=== PATIENT | female | born 1955 | race African-American/Black ===

== ENCOUNTER 2019-10-01 05:37 | Inpatient (IN) | payer MEDICARE, MEDICAID ==
[~2019-10-01] VITALS: Ht 152.4 cm; Wt 91.6 kg
[2019-10-01] VITALS (57 sets, daily range): BP systolic 102–202; BP diastolic 50–191
[2019-10-01] MEDS: DEXT 5%/LACTATED RINGERS 1,000 ML IV SCH ×2 (01:35→10:43)
[~2019-10-01 05:37] MED LIST: SODIUM CHLORIDE 0.9% 1,000 ML IV SCH
[2019-10-01] MEDS ORDERED: THROMBIN (BOVINE) 5000 UNITS/VIAL TOP ONE (06:19)
[2019-10-01] MEDS ORDERED: LIDOCAINE HCL/EPINEPHRINE 1%-EPI 1:100,000 20 ML VIAL ONE (06:20)
[2019-10-01] MEDS ORDERED: BACITRACIN 50,000 UNITS/VIAL ONE (06:20)
[2019-10-01] MEDS ORDERED: ASPI-1497 PO (06:48)
[2019-10-01] MEDS ORDERED: METH-612 PO (06:48)
[2019-10-01] MEDS ORDERED: LORA10CA PO (06:48)
[2019-10-01] MEDS ORDERED: METF-414 PO (06:48)
[2019-10-01] MEDS ORDERED: SULI200T4 PO (06:48)
[2019-10-01] MEDS ORDERED: ATEN50TA PO (06:48)
[2019-10-01] MEDS ORDERED: HYDR25TA PO (06:48)
[2019-10-01] MEDS ORDERED: TRAM100C3 PO (06:48)
[2019-10-01] MEDS ORDERED: OMEP40CA12 MT (06:48)
[2019-10-01] MEDS ORDERED: PREG20SO PO (06:48)
[2019-10-01] MEDS ORDERED: LIDO1ADH71 (06:48)
[2019-10-01] MEDS ORDERED: SUCR1TAB PO (06:48)
[2019-10-01] MEDS ORDERED: PRAV40TA58 PO (06:48)
[2019-10-01] MEDS ORDERED: FENTANYL CITRATE/PF 50MCG/ML 2ML VIAL ONE (06:56)
[2019-10-01] MEDS ORDERED: ROCURONIUM BROMIDE 10MG/ML VIAL 5ML IV ONE (06:56)
[2019-10-01] MEDS ORDERED: MIDAZOLAM HCL 2 MG/2 ML VIAL ONE (06:57)
[2019-10-01] MEDS ORDERED: PROPOFOL 200MG/20ML VIAL IV ONE (06:57)
[2019-10-01] MEDS ORDERED: GLYCOPYRROLATE 0.2 MG/ML 2ML VIAL ONE ×2 (06:57→09:13)
[2019-10-01] MEDS ORDERED: NEOSTIGMINE METHYLSULFATE 1MG/ML 10 ML VIAL ONE (06:57)
[2019-10-01 06:58] LABS: CHLORIDE 101 mEq/L (98-107)
[2019-10-01] MEDS ORDERED: ONDANSETRON HCL 4MG/2ML INJ ONE (07:49)
[2019-10-01] MEDS ORDERED: HYDROMORPHONE HCL/PF 2MG/ML (OR) ONE (07:49)
[2019-10-01] MEDS ORDERED: DEXAMETHASONE 4MG/ML 1ML VIAL ONE (07:49)
[2019-10-01] MEDS ORDERED: FEXO-25 PO (08:42)
[2019-10-01] MEDS ORDERED: AMIT75TA2 PO (08:42)
[2019-10-01] MEDS ORDERED: FLUT1AER INH (08:42)
[2019-10-01] MEDS ORDERED: IPRA4AER INH (08:42)
[2019-10-01] MEDS ORDERED: ALBU90AE INH (08:42)
[2019-10-01] MEDS ORDERED: GABA-290 PO (08:42)
[2019-10-01] MEDS ORDERED: FLUT9.9S NS (08:42)
[2019-10-01] MEDS ORDERED: NICARDIPINE 100 MG in SODIUM CHLORIDE 0.9% 60 ML IV PRN (09:00)
[2019-10-01] MEDS ORDERED: LIDOCAINE HCL 1% 20ML VIAL (Pyxis) INJ ONE (09:07)
[2019-10-01] MEDS ORDERED: SODIUM CHLORIDE 0.9% 10ML VIAL ONE (09:07)
[2019-10-01] MEDS ORDERED: LABETALOL HCL 5MG/ML VIAL 20ML IV ONE (09:07)
[2019-10-01] MEDS ORDERED: HYDRALAZINE 20MG/ML VIAL ONE (09:07)
[2019-10-01] MEDS ORDERED: EPHEDRINE SULFATE 50MG/ML VIAL ONE (09:07)
[2019-10-01] MEDS ORDERED: CEFAZOLIN SODIUM 1000MG/VIAL ONE (09:07)
[2019-10-01] MEDS ORDERED: PREG50CA PO (10:22)
[2019-10-01] MEDS ORDERED: OMEP40CA12 PO (10:24)
[2019-10-01] MEDS: MORPHINE SULFATE 4 MG/ML CPJ (NOT FOR IM USE) IV PRN ×2 (10:40→12:58)
[2019-10-01] MEDS ORDERED: MORPHINE SULFATE 2 MG/ML CPJ (NOT FOR IM USE) IV NR (11:30)
[2019-10-01 11:58] LABS: BG BASE EXCESS -0.4 mmol/L (-2.0-2.0); BG CARBOXYHEMOGLOBIN 0.4 % (0.5-1.5); BG DEOXYHEMOGLOBIN 1.3 % (0.0-5.0); BG FRACTION INSPIRED OXYGEN 40; BG HCO3 ACT 23.1 mmol/L (22.0-26.0); BG METHEMOGLOBIN 0.3 % (0.0-1.5); BG OXYGEN SATURATION 98.7 % (92.0-98.5); BG PCO2 34.2 mmHg (35.0-45.0); BG PH 7.447 (7.350-7.450); BG PO2 150.9 mmHg (75.0-100.0); BG PRESSURE SUPPORT 8; BG SAMPLE SITE A-LINE; BG TOTAL HEMOGLOBIN 12.3 g/dL (12.0-18.0); BG VENT MODE VENT - CPAP
[2019-10-01] MEDS ORDERED: NALOXONE INJ IV PRN (13:30)
[2019-10-01] MEDS ORDERED: ONDANSETRON INJ IV PRN (13:30)
[2019-10-01] MEDS ORDERED: HYDROMORPHONE PCA 10MG/50ML IV PRN (13:30)
[2019-10-01] MEDS ORDERED: CEFAZOLIN SODIUM 1000MG/VIAL IV SCH (14:00)
[2019-10-01] MEDS: DEXAMETHASONE 4MG/ML 1ML VIAL IV SCH ×2 (14:25→18:47)
[2019-10-01] MEDS: CEFAZOLIN 1000MG PREMIX 50 ML IV SCH ×2 (14:25→21:11)
[2019-10-01] MEDS ORDERED: IPRATROPIUM/ALBUTEROL 0.5-3(2.5)MG/3ML NEB HHN PRN (14:45)
[2019-10-01 15:06] LABS: HEMATOCRIT. 36.5 % (36.0-48.0); MEAN CORPUSCULAR HEMOGLOBIN 28.2 pg (28.0-32.0); MEAN CORPUSCULAR VOLUME 86.1 fL (81.0-99.0); MEAN PLATELET VOLUME 10.1 fl (7.4-10.4); PLATELET 192 x1000/uL (130-400); RED BLOOD CELL COUNT 4.24 mill/uL (4.2-5.4); RED CELL DISTRIBUTION WIDTH 14.2 % (11.6-14.6)
[2019-10-01 16:01] LABS: PLATELET ESTIMATE NORMAL
[2019-10-01] MEDS ORDERED: DEXTROSE 50% WATER 50ML SYRINGE IV PRN (16:30)
[2019-10-01] MEDS: BLOOD SUGAR DIAGNOSTIC STRIP TEST SCH ×2 (16:30→21:09)
[2019-10-01] MEDS: INSULIN LISPRO 100 UNITS/ML SUBCUT SCH ×2 (17:00→22:09)
[2019-10-01] MEDS ORDERED: OXYCODONE HCL/ACETAMINOPHEN 5/325MG TABLET PO PRN (18:30)
[2019-10-01] MEDS: FLUTICASONE PROPIONATE 50MCG/SPRAY BOTTLE BOTHNSTRLS SCH (20:51)
[2019-10-01] MEDS: AMITRIPTYLINE 25MG TABLET PO SCH (20:57)
[2019-10-01] MEDS: GABAPENTIN 300MG CAPSULE PO SCH (20:57)
[2019-10-01] MEDS: ATORVASTATIN CALCIUM 40MG TABLET PO SCH (20:57)
[2019-10-01] MEDS: ATENOLOL 50 MG TABLET PO SCH (20:58)
[2019-10-01] MEDS: BUDESONIDE 0.5MG/2ML NEB HHN SCH (21:23)
[2019-10-01] MEDS: IPRATROPIUM/ALBUTEROL 0.5-3(2.5)MG/3ML NEB HHN SCH (21:23)
[2019-10-02] VITALS (63 sets, daily range): BP systolic 84–197; BP diastolic 32–121
[2019-10-02] MEDS: DEXAMETHASONE 4MG/ML 1ML VIAL IV SCH ×3 (00:27→11:34)
[2019-10-02] MEDS: HYDROCODONE/ACETAMINOPHEN 5/325MG TABLET PO PRN ×2 (01:02→20:58)
[2019-10-02] MEDS: IPRATROPIUM/ALBUTEROL 0.5-3(2.5)MG/3ML NEB HHN SCH ×3 (02:16→20:15)
[2019-10-02] MEDS: OMEPRAZOLE 20MG CAPSULE EXTENDED RELEASE PO SCH (05:39)
[2019-10-02] MEDS: CEFAZOLIN 1000MG PREMIX 50 ML IV SCH ×3 (05:39→21:04)
[2019-10-02] MEDS: BUDESONIDE 0.5MG/2ML NEB HHN SCH ×2 (06:00→20:15)
[2019-10-02 06:03] LABS: CHLORIDE 101 mEq/L (98-107)
[2019-10-02] MEDS ORDERED: LORATADINE 10MG TABLET PO SCH (09:00)
[2019-10-02] MEDS: HYDROCHLOROTHIAZIDE 25MG TABLET PO SCH (09:36)
[2019-10-02] MEDS: METFORMIN HCL 500MG TABLET PO SCH (09:36)
[2019-10-02] MEDS ORDERED: GUAIFENESIN 600MG ER TABLET PO PRN (10:30)
[2019-10-02] MEDS: DEXT 5%/LACTATED RINGERS 1,000 ML IV SCH ×2 (11:34→16:23)
[2019-10-02] MEDS: FLUTICASONE PROPIONATE 50MCG/SPRAY BOTTLE BOTHNSTRLS SCH ×2 (11:34→20:54)
[2019-10-02] MEDS: BLOOD SUGAR DIAGNOSTIC STRIP TEST SCH ×3 (12:05→20:54)
[2019-10-02] MEDS: INSULIN LISPRO 100 UNITS/ML SUBCUT SCH ×3 (13:41→20:55)
[2019-10-02] MEDS: DIPHENHYDRAMINE 25MG CAPSULE PO PRN ×2 (17:33→21:38)
[2019-10-02] MEDS: AMITRIPTYLINE 25MG TABLET PO SCH (20:55)
[2019-10-02] MEDS: GABAPENTIN 300MG CAPSULE PO SCH (20:55)
[2019-10-02] MEDS: LORATADINE 10MG TABLET PO SCH (20:55)
[2019-10-02] MEDS: ATORVASTATIN CALCIUM 40MG TABLET PO SCH (20:56)
[2019-10-02] MEDS: ATENOLOL 50 MG TABLET PO SCH (20:56)
[2019-10-02] MEDS: MORPHINE SULFATE 4 MG/ML CPJ (NOT FOR IM USE) IV PRN (23:13)
[2019-10-03] VITALS: BP 115/50
[2019-10-03] MEDS: IPRATROPIUM/ALBUTEROL 0.5-3(2.5)MG/3ML NEB HHN SCH ×4 (02:17→21:56)
[2019-10-03 04:00] VITALS: BP 112/54
[2019-10-03] MEDS: DEXT 5%/LACTATED RINGERS 1,000 ML IV SCH ×2 (06:03→12:23)
[2019-10-03] MEDS: CEFAZOLIN 1000MG PREMIX 50 ML IV SCH ×2 (06:03→13:44)
[2019-10-03] MEDS: BLOOD SUGAR DIAGNOSTIC STRIP TEST SCH ×4 (06:04→20:44)
[2019-10-03] MEDS: OMEPRAZOLE 20MG CAPSULE EXTENDED RELEASE PO SCH (06:04)
[2019-10-03] MEDS: MORPHINE SULFATE 4 MG/ML CPJ (NOT FOR IM USE) IV PRN ×7 (06:05→23:35)
[2019-10-03 06:59] LABS: BASOPHILS % 0.2 % (0.0-2.0); HEMATOCRIT. 31.1 % (36.0-48.0); HEMOGLOBIN. 10.3 g/dL (12.0-16.0); LYMPHOCYTES % 13.7 % (20.0-50.0); MEAN CORPUSCULAR HEMOGLOBIN 28.3 pg (28.0-32.0); MEAN CORPUSCULAR VOLUME 85.1 fL (81.0-99.0); MEAN PLATELET VOLUME 10.1 fl (7.4-10.4); MONOCYTES % 6.4 % (2.0-8.0); NEUTROPHILS % 79.7 % (40.0-76.0); PLATELET 179 x1000/uL (130-400); RED BLOOD CELL COUNT 3.65 mill/uL (4.2-5.4); RED CELL DISTRIBUTION WIDTH 14.1 % (11.6-14.6)
[2019-10-03 07:16] LABS: CHLORIDE 102 mEq/L (98-107)
[2019-10-03] MEDS: INSULIN LISPRO 100 UNITS/ML SUBCUT SCH ×4 (07:40→20:44)
[2019-10-03 08:00] VITALS: BP 122/55
[2019-10-03] MEDS: BUDESONIDE 0.5MG/2ML NEB HHN SCH ×2 (08:37→21:57)
[2019-10-03] MEDS: FLUTICASONE PROPIONATE 50MCG/SPRAY BOTTLE BOTHNSTRLS SCH ×3 (09:00→20:37)
[2019-10-03] MEDS: HYDROCHLOROTHIAZIDE 25MG TABLET PO SCH (09:16)
[2019-10-03] MEDS: METFORMIN HCL 500MG TABLET PO SCH (09:17)
[2019-10-03 12:00] VITALS: BP 142/68
[2019-10-03 16:00] VITALS: BP 148/61
[2019-10-03 20:00] VITALS: BP_SYST 110; BP_SYST 99; BP_DIAS 47; BP_DIAS 58
[2019-10-03] MEDS: ATENOLOL 50 MG TABLET PO SCH (20:19)
[2019-10-03] MEDS: GABAPENTIN 300MG CAPSULE PO SCH (20:19)
[2019-10-03] MEDS: ATORVASTATIN CALCIUM 40MG TABLET PO SCH (20:19)
[2019-10-03] MEDS: AMITRIPTYLINE 25MG TABLET PO SCH (20:19)
[2019-10-03] MEDS: LORATADINE 10MG TABLET PO SCH (20:37)
[2019-10-04] VITALS: BP 99/58
[2019-10-04] MEDS: IPRATROPIUM/ALBUTEROL 0.5-3(2.5)MG/3ML NEB HHN SCH (02:16)
[2019-10-04 04:00] VITALS: BP 111/53
[2019-10-04] MEDS: MORPHINE SULFATE 4 MG/ML CPJ (NOT FOR IM USE) IV PRN ×2 (06:21→10:24)
[2019-10-04] MEDS: OMEPRAZOLE 20MG CAPSULE EXTENDED RELEASE PO SCH (06:21)
[2019-10-04] MEDS: DEXT 5%/LACTATED RINGERS 1,000 ML IV SCH ×2 (06:26→09:21)
[2019-10-04] MEDS: BLOOD SUGAR DIAGNOSTIC STRIP TEST SCH ×2 (06:35→12:20)
[2019-10-04] MEDS: INSULIN LISPRO 100 UNITS/ML SUBCUT SCH ×2 (06:35→12:50)
[2019-10-04 07:22] LABS: BASOPHILS % 0.1 % (0.0-2.0); EOSINOPHILS % 0.5 % (0.0-5.0); HEMATOCRIT. 32.7 % (36.0-48.0); HEMOGLOBIN. 10.6 g/dL (12.0-16.0); LYMPHOCYTES % 22.4 % (20.0-50.0); MEAN CORPUSCULAR HEMOGLOBIN 27.7 pg (28.0-32.0); MEAN CORPUSCULAR VOLUME 85.5 fL (81.0-99.0); MEAN PLATELET VOLUME 9.6 fl (7.4-10.4); MONOCYTES % 8.8 % (2.0-8.0); NEUTROPHILS % 68.2 % (40.0-76.0); PLATELET 182 x1000/uL (130-400); RED BLOOD CELL COUNT 3.82 mill/uL (4.2-5.4); RED CELL DISTRIBUTION WIDTH 14.3 % (11.6-14.6)
[2019-10-04 08:00] VITALS: BP 111/60
[2019-10-04 08:34] LABS: CHLORIDE 98 mEq/L (98-107)
[2019-10-04] MEDS: HYDROCHLOROTHIAZIDE 25MG TABLET PO SCH (09:21)
[2019-10-04] MEDS: FLUTICASONE PROPIONATE 50MCG/SPRAY BOTTLE BOTHNSTRLS SCH (09:21)
[2019-10-04] MEDS: METFORMIN HCL 500MG TABLET PO SCH (09:21)
[2019-10-04] MEDS: HYDROCODONE/ACETAMINOPHEN 5/325MG TABLET PO PRN (11:49)
[2019-10-04 12:00] VITALS: BP 138/60
[2019-10-04] MEDS ORDERED: HYDROCODONE/APAP 7.5/325MG 1 TAB TABLET PO PRN (13:00)
[2019-10-04 17:04] VITALS: BP 153/60
== END 2019-10-04 17:42 | DRG 471 ==
LOC: OR 05:37 → MICUSO 05:38 → 6EST 10-02 22:20
PROVIDERS: ADMIT Internal Medicine; ATTEND Neurological Surgery
PROC: 0RG2071 Fusion of 2 or more Cervical Vertebral Joints with Autologous Tissue Substitute, Posterior Approach, Posterior Column, Open Approach (ICD-10-PCS; principal; 2019-10-01)
PROC: 00NW0ZZ Release Cervical Spinal Cord, Open Approach (ICD-10-PCS; 2019-10-01)
PROC: BR101ZZ Fluoroscopy of Cervical Spine using Low Osmolar Contrast (ICD-10-PCS; 2019-10-01)
DX: M48.02 Spinal stenosis, cervical region (principal); G82.50 Quadriplegia, unspecified; M47.12 Other spondylosis with myelopathy, cervical region; M47.22 Other spondylosis with radiculopathy, cervical region; E11.9 Type 2 diabetes mellitus without complications; E66.9 Obesity, unspecified; E78.5 Hyperlipidemia, unspecified; E87.6 Hypokalemia; Z96.653 Presence of artificial knee joint, bilateral; R26.89 Other abnormalities of gait and mobility; F41.9 Anxiety disorder, unspecified; I10 Essential (primary) hypertension; J45.909 Unspecified asthma, uncomplicated; Z87.891 Personal history of nicotine dependence; Z68.39 Body mass index [BMI] 39.0-39.9, adult; Z90.710 Acquired absence of both cervix and uterus
CPT/HCPCS: 36415; 36600; 71045; 72040; 72141; 76000; 80048; 82375; 82805; 82962; 83036; 85025; 86850; 86900; 88304; 88311; 94002; 94640; 97116; 97162; 97166; 97530; 97535; C1713; J0360; J0690; J1100; J1170; J1815; J2250; J2270; J2405; J2704; J2710; J3010; J3490; J7050; J7121; J7626; Q0163

== ENCOUNTER 2019-10-04 18:00 | Inpatient (IN) | payer MEDICARE, MEDICAID ==
[~2019-10-04] VITALS: Ht 152.4 cm; Wt 91.6 kg
[~2019-10-04 18:00] MED LIST changes: +ALBU90AE INH; +AMIT75TA2 PO; +ASPI-1497 PO; +ATEN50TA PO; +FEXO-25 PO; +FLUT1AER INH; +FLUT9.9S NS; +GABA-290 PO; +HYDR25TA PO; +IPRA4AER INH; +LIDO1ADH71; +LORA10CA PO; +METF-414 PO; +METH-612 PO; +OMEP40CA12 PO; +PRAV40TA58 PO; +PREG50CA PO; -SODIUM CHLORIDE 0.9% 1,000 ML IV SCH; +SUCR1TAB PO; +SULI200T4 PO; +TRAM100C3 PO
[2019-10-04] MEDS ORDERED: IPRATROPIUM/ALBUTEROL 0.5-3(2.5)MG/3ML NEB HHN PRN (19:30)
[2019-10-04] MEDS ORDERED: DEXTROSE 50% WATER 50ML SYRINGE IV PRN (19:30)
[2019-10-04] MEDS ORDERED: DIPHENHYDRAMINE 25MG CAPSULE PO PRN (19:30)
[2019-10-04 20:00] VITALS: BP_SYST 151; BP_SYST 175; BP_DIAS 74; BP_DIAS 75
[2019-10-04] MEDS: HYDROCODONE/APAP 7.5/325MG 1 TAB TABLET PO PRN (20:03)
[2019-10-04] MEDS: INSULIN LISPRO 100 UNITS/ML SUBCUT SCH (21:00)
[2019-10-04] MEDS: BLOOD SUGAR DIAGNOSTIC STRIP TEST SCH (21:14)
[2019-10-04] MEDS: AMITRIPTYLINE 25MG TABLET PO SCH (21:15)
[2019-10-04] MEDS: ATORVASTATIN CALCIUM 40MG TABLET PO SCH (21:15)
[2019-10-04] MEDS: ONDANSETRON HCL 4MG TABLET PO PRN (21:15)
[2019-10-04] MEDS: GABAPENTIN 300MG CAPSULE PO SCH (21:15)
[2019-10-04] MEDS: LORATADINE 10MG TABLET PO SCH (21:16)
[2019-10-04] MEDS: ATENOLOL 50 MG TABLET PO SCH (21:16)
[2019-10-04] MEDS: GUAIFENESIN 600MG ER TABLET PO SCH (21:16)
[2019-10-05] MEDS: OMEPRAZOLE 20MG CAPSULE EXTENDED RELEASE PO SCH (06:03)
[2019-10-05] MEDS: ONDANSETRON HCL 4MG TABLET PO PRN ×2 (06:03→15:21)
[2019-10-05] MEDS: BLOOD SUGAR DIAGNOSTIC STRIP TEST SCH ×4 (06:41→21:31)
[2019-10-05 08:00] VITALS: BP 147/69
[2019-10-05] MEDS: INSULIN LISPRO 100 UNITS/ML SUBCUT SCH ×4 (09:00→21:00)
[2019-10-05] MEDS: FLUTICASONE PROPIONATE 50MCG/SPRAY BOTTLE BOTHNSTRLS SCH ×2 (09:00→21:23)
[2019-10-05] MEDS: HYDROCODONE/APAP 7.5/325MG 1 TAB TABLET PO PRN ×2 (09:48→16:54)
[2019-10-05] MEDS: ONDANSETRON 4MG ODT PO PRN (11:05)
[2019-10-05] MEDS: GUAIFENESIN 600MG ER TABLET PO SCH ×2 (11:54→21:23)
[2019-10-05] MEDS: BISACODYL 5MG TABLET PO PRN (11:54)
[2019-10-05] MEDS: HYDROCHLOROTHIAZIDE 25MG TABLET PO SCH (11:54)
[2019-10-05] MEDS: METFORMIN HCL 500MG TABLET PO SCH (11:54)
[2019-10-05] MEDS: LACTULOSE 20G/30ML UDC PO SCH ×2 (11:54→18:00)
[2019-10-05] MEDS ORDERED: NA PHOS,M-B/NA PHOS,DI-BA ENEMA 118ML PR PRN (15:45)
[2019-10-05] MEDS ORDERED: ONDANSETRON HCL 4MG/2ML INJ IV PRN (16:30)
[2019-10-05 20:00] VITALS: BP 130/62
[2019-10-05] MEDS: ATORVASTATIN CALCIUM 40MG TABLET PO SCH (21:23)
[2019-10-05] MEDS: LORATADINE 10MG TABLET PO SCH (21:23)
[2019-10-05] MEDS: AMITRIPTYLINE 25MG TABLET PO SCH (21:23)
[2019-10-05] MEDS: GABAPENTIN 300MG CAPSULE PO SCH (21:23)
[2019-10-05] MEDS: ATENOLOL 50 MG TABLET PO SCH (21:24)
[2019-10-06] MEDS: LACTULOSE 20G/30ML UDC PO SCH
[2019-10-06] MEDS: INSULIN LISPRO 100 UNITS/ML SUBCUT SCH ×4 (06:32→21:00)
[2019-10-06] MEDS: BLOOD SUGAR DIAGNOSTIC STRIP TEST SCH ×4 (06:32→21:26)
[2019-10-06] MEDS: OMEPRAZOLE 20MG CAPSULE EXTENDED RELEASE PO SCH (06:33)
[2019-10-06 08:21] VITALS: BP 130/61
[2019-10-06] MEDS: FLUTICASONE PROPIONATE 50MCG/SPRAY BOTTLE BOTHNSTRLS SCH ×2 (09:00→21:00)
[2019-10-06] MEDS: GUAIFENESIN 600MG ER TABLET PO SCH ×2 (09:15→21:24)
[2019-10-06] MEDS: METFORMIN HCL 500MG TABLET PO SCH (09:15)
[2019-10-06] MEDS: HYDROCHLOROTHIAZIDE 25MG TABLET PO SCH (09:16)
[2019-10-06] MEDS: HYDROCODONE/APAP 7.5/325MG 1 TAB TABLET PO PRN ×3 (09:16→23:19)
[2019-10-06 17:10] VITALS: BP 125/59
[2019-10-06] MEDS: ONDANSETRON 4MG ODT PO PRN (17:11)
[2019-10-06 20:00] VITALS: BP 113/51
[2019-10-06] MEDS: AMITRIPTYLINE 25MG TABLET PO SCH (21:24)
[2019-10-06] MEDS: ATORVASTATIN CALCIUM 40MG TABLET PO SCH (21:24)
[2019-10-06] MEDS: ATENOLOL 50 MG TABLET PO SCH (21:25)
[2019-10-06] MEDS: LORATADINE 10MG TABLET PO SCH (21:25)
[2019-10-06] MEDS: GABAPENTIN 300MG CAPSULE PO SCH (21:25)
[2019-10-07] MEDS: HYDROCODONE/APAP 7.5/325MG 1 TAB TABLET PO PRN ×2 (04:33→10:01)
[2019-10-07] MEDS: BLOOD SUGAR DIAGNOSTIC STRIP TEST SCH ×4 (06:19→21:00)
[2019-10-07] MEDS: INSULIN LISPRO 100 UNITS/ML SUBCUT SCH ×4 (06:19→21:00)
[2019-10-07 08:00] VITALS: BP 114/58
[2019-10-07] MEDS: HYDROCHLOROTHIAZIDE 25MG TABLET PO SCH (08:23)
[2019-10-07] MEDS: BISACODYL 5MG TABLET PO PRN (08:23)
[2019-10-07] MEDS: METFORMIN HCL 500MG TABLET PO SCH (08:23)
[2019-10-07] MEDS: FAMOTIDINE 20MG TABLET PO SCH ×2 (08:24→22:48)
[2019-10-07] MEDS: FLUTICASONE PROPIONATE 50MCG/SPRAY BOTTLE BOTHNSTRLS SCH (08:25)
[2019-10-07] MEDS: GUAIFENESIN 600MG ER TABLET PO SCH ×2 (08:25→22:36)
[2019-10-07 15:15] VITALS: BP 122/66
[2019-10-07] MEDS ORDERED: GABAPENTIN 300MG CAPSULE PO SCH (15:30)
[2019-10-07] MEDS: HYDROCODONE/ACETAMINOPHEN 10/325MG TABLET PO PRN (15:31)
[2019-10-07] MEDS: GABAPENTIN 300MG CAPSULE PO SCH ×2 (15:31→22:36)
[2019-10-07 16:49] LABS: CLARITY URINE CLEAR (CLEAR); COLOR URINE YELLOW (YELLOW); KETONES URINE NEGATIVE (NEGATIVE); LEUKOCYTE ESTERASE URINE NEGATIVE (NEGATIVE); NITRITE URINE NEGATIVE (NEGATIVE); OCCULT BLOOD URINE TRACE (NEGATIVE); PROTEIN URINE NEGATIVE (NEGATIVE); SPECIFIC GRAVITY URINE 1.007 (1.005-1.030)
[2019-10-07 20:00] VITALS: BP 116/56
[2019-10-07] MEDS: LORATADINE 10MG TABLET PO SCH (22:36)
[2019-10-07] MEDS: ATORVASTATIN CALCIUM 40MG TABLET PO SCH (22:36)
[2019-10-07] MEDS: ATENOLOL 50 MG TABLET PO SCH (22:37)
[2019-10-07] MEDS: AMITRIPTYLINE 25MG TABLET PO SCH (22:37)
[2019-10-08] MEDS: INSULIN LISPRO 100 UNITS/ML SUBCUT SCH ×4 (06:50→22:12)
[2019-10-08] MEDS: BLOOD SUGAR DIAGNOSTIC STRIP TEST SCH ×4 (06:50→21:43)
[2019-10-08 07:29] LABS: BASOPHILS % 0.5 % (0.0-2.0); EOSINOPHILS % 2.4 % (0.0-5.0); HEMATOCRIT. 36.8 % (36.0-48.0); HEMOGLOBIN. 12.2 g/dL (12.0-16.0); LYMPHOCYTES % 21.8 % (20.0-50.0); MEAN CORPUSCULAR HEMOGLOBIN 27.9 pg (28.0-32.0); MEAN CORPUSCULAR VOLUME 84.2 fL (81.0-99.0); MEAN PLATELET VOLUME 8.8 fl (7.4-10.4); MONOCYTES % 9.1 % (2.0-8.0); NEUTROPHILS % 66.2 % (40.0-76.0); PLATELET 307 x1000/uL (130-400); RED BLOOD CELL COUNT 4.37 mill/uL (4.2-5.4); RED CELL DISTRIBUTION WIDTH 13.5 % (11.6-14.6)
[2019-10-08 07:40] LABS: CHLORIDE 92 mEq/L (98-107)
[2019-10-08 07:47] LABS: PHOSPHORUS 3.1 mg/dL (2.5-4.9)
[2019-10-08 08:17] VITALS: BP 95/47
[2019-10-08] MEDS: METFORMIN HCL 500MG TABLET PO SCH (08:39)
[2019-10-08] MEDS: HYDROCODONE/ACETAMINOPHEN 10/325MG TABLET PO PRN ×2 (08:40→14:53)
[2019-10-08] MEDS: FAMOTIDINE 20MG TABLET PO SCH ×2 (08:40→21:38)
[2019-10-08] MEDS: HYDROCHLOROTHIAZIDE 25MG TABLET PO SCH (08:40)
[2019-10-08] MEDS: GUAIFENESIN 600MG ER TABLET PO SCH ×2 (08:40→21:38)
[2019-10-08] MEDS ORDERED: GABAPENTIN 300MG CAPSULE PO SCH (09:00)
[2019-10-08] MEDS ORDERED: POTASSIUM CHLORIDE 20MEQ/PACKET PO NR (13:15)
[2019-10-08] MEDS: GABAPENTIN 300MG CAPSULE PO SCH ×2 (14:07→21:38)
[2019-10-08] MEDS: LACTULOSE 20G/30ML UDC PO SCH ×3 (14:13→21:43)
[2019-10-08] MEDS ORDERED: BISACODYL 10MG SUPP PR PRN (14:15)
[2019-10-08] MEDS: DOCUSATE SODIUM 100MG CAPSULE PO SCH (18:08)
[2019-10-08 20:00] VITALS: BP 115/67
[2019-10-08] MEDS: HYDROCODONE/APAP 7.5/325MG 1 TAB TABLET PO PRN (20:06)
[2019-10-08] MEDS: IPRATROPIUM/ALBUTEROL 0.5-3(2.5)MG/3ML NEB HHN SCH (20:32)
[2019-10-08] MEDS: ATORVASTATIN CALCIUM 40MG TABLET PO SCH (21:38)
[2019-10-08] MEDS: AMITRIPTYLINE 25MG TABLET PO SCH (21:38)
[2019-10-08] MEDS: ATENOLOL 50 MG TABLET PO SCH (21:38)
[2019-10-08] MEDS: LORATADINE 10MG TABLET PO SCH (21:39)
[2019-10-08] MEDS: POLYETHYLENE GLYCOL 3350 (17GM) 1 DOSE PACK PO SCH (21:43)
[2019-10-09] MEDS: IPRATROPIUM/ALBUTEROL 0.5-3(2.5)MG/3ML NEB HHN SCH ×4 (02:11→22:07)
[2019-10-09] MEDS: HYDROCODONE/APAP 7.5/325MG 1 TAB TABLET PO PRN (02:33)
[2019-10-09] MEDS: INSULIN LISPRO 100 UNITS/ML SUBCUT SCH ×4 (06:20→21:00)
[2019-10-09] MEDS: BLOOD SUGAR DIAGNOSTIC STRIP TEST SCH ×4 (06:20→21:12)
[2019-10-09] MEDS: HYDROCODONE/ACETAMINOPHEN 10/325MG TABLET PO PRN (06:59)
[2019-10-09] MEDS: BUDESONIDE 0.5MG/2ML NEB HHN SCH ×2 (07:59→22:08)
[2019-10-09 08:00] VITALS: BP 94/35
[2019-10-09] MEDS ORDERED: NALOXONE HCL 0.4 MG/ML 1ML VIAL IV PRN (08:45)
[2019-10-09] MEDS ORDERED: HYDROMORPHONE HCL/PF 2MG/ML CPJ IV PRN (08:45)
[2019-10-09] MEDS: METFORMIN HCL 500MG TABLET PO SCH (09:21)
[2019-10-09] MEDS: GUAIFENESIN 600MG ER TABLET PO SCH ×2 (09:21→21:12)
[2019-10-09] MEDS: HYDROCHLOROTHIAZIDE 25MG TABLET PO SCH (09:21)
[2019-10-09] MEDS: DOCUSATE SODIUM 100MG CAPSULE PO SCH ×2 (09:21→17:25)
[2019-10-09] MEDS: FAMOTIDINE 20MG TABLET PO SCH ×2 (09:21→21:12)
[2019-10-09 12:45] VITALS: BP 113/52
[2019-10-09] MEDS: OXYCODONE HCL/ACETAMINOPHEN 5/325MG TABLET PO PRN ×2 (13:12→19:28)
[2019-10-09] MEDS ORDERED: NA PHOS,M-B/NA PHOS,DI-BA ENEMA 118ML PR NR (18:30)
[2019-10-09] MEDS: LACTULOSE 20G/30ML UDC PO SCH ×2 (18:39→21:10)
[2019-10-09 20:00] VITALS: BP 144/61
[2019-10-09] MEDS: POLYETHYLENE GLYCOL 3350 (17GM) 1 DOSE PACK PO SCH (21:11)
[2019-10-09] MEDS: AMITRIPTYLINE 25MG TABLET PO SCH (21:11)
[2019-10-09] MEDS: LORATADINE 10MG TABLET PO SCH (21:11)
[2019-10-09] MEDS: ATORVASTATIN CALCIUM 40MG TABLET PO SCH (21:11)
[2019-10-09] MEDS: PREGABALIN 25MG CAPSULE PO SCH (21:11)
[2019-10-09] MEDS: ATENOLOL 50 MG TABLET PO SCH (21:12)
[2019-10-10] MEDS: IPRATROPIUM/ALBUTEROL 0.5-3(2.5)MG/3ML NEB HHN SCH ×3 (02:00→20:27)
[2019-10-10] MEDS: OXYCODONE HCL/ACETAMINOPHEN 5/325MG TABLET PO PRN ×3 (03:42→18:22)
[2019-10-10] MEDS: BLOOD SUGAR DIAGNOSTIC STRIP TEST SCH ×4 (05:33→20:45)
[2019-10-10] MEDS: INSULIN LISPRO 100 UNITS/ML SUBCUT SCH ×4 (05:33→20:45)
[2019-10-10 07:23] LABS: BASOPHILS % 1.2 % (0.0-2.0); EOSINOPHILS % 2.2 % (0.0-5.0); LYMPHOCYTES % 13.6 % (20.0-50.0); MEAN CORPUSCULAR HEMOGLOBIN 28.1 pg (28.0-32.0); MEAN PLATELET VOLUME 8.3 fl (7.4-10.4); MONOCYTES % 6.5 % (2.0-8.0); NEUTROPHILS % 76.5 % (40.0-76.0); PLATELET 342 x1000/uL (130-400); RED BLOOD CELL COUNT 4.29 mill/uL (4.2-5.4); RED CELL DISTRIBUTION WIDTH 13.8 % (11.6-14.6)
[2019-10-10 07:55] LABS: CHLORIDE 93 mEq/L (98-107)
[2019-10-10 08:00] VITALS: BP 116/60
[2019-10-10] MEDS: GUAIFENESIN 600MG ER TABLET PO SCH ×2 (08:46→20:44)
[2019-10-10] MEDS: FAMOTIDINE 20MG TABLET PO SCH ×2 (08:46→20:45)
[2019-10-10] MEDS: HYDROCHLOROTHIAZIDE 25MG TABLET PO SCH (08:46)
[2019-10-10] MEDS: METFORMIN HCL 500MG TABLET PO SCH (08:46)
[2019-10-10] MEDS: PREGABALIN 25MG CAPSULE PO SCH ×2 (08:46→20:44)
[2019-10-10] MEDS: DOCUSATE SODIUM 100MG CAPSULE PO SCH ×2 (08:46→17:00)
[2019-10-10] MEDS: BUDESONIDE 0.5MG/2ML NEB HHN SCH ×2 (09:03→20:20)
[2019-10-10] MEDS ORDERED: HYDROMORPHONE HCL/PF 2MG/ML CPJ IV PRN (10:30)
[2019-10-10] MEDS ORDERED: POTASSIUM CHLORIDE 20MEQ TABLET SR PO SCH (11:30)
[2019-10-10] MEDS: TRAMADOL 50MG TABLET PO PRN ×2 (13:50→22:46)
[2019-10-10 20:00] VITALS: BP 132/73
[2019-10-10] MEDS: LORATADINE 10MG TABLET PO SCH (20:44)
[2019-10-10] MEDS: ATORVASTATIN CALCIUM 40MG TABLET PO SCH (20:44)
[2019-10-10] MEDS: AMITRIPTYLINE 25MG TABLET PO SCH (20:44)
[2019-10-10] MEDS: ATENOLOL 50 MG TABLET PO SCH (20:45)
[2019-10-10] MEDS: POLYETHYLENE GLYCOL 3350 (17GM) 1 DOSE PACK PO SCH (20:47)
[2019-10-11] MEDS: IPRATROPIUM/ALBUTEROL 0.5-3(2.5)MG/3ML NEB HHN SCH ×3 (02:02→12:13)
[2019-10-11] MEDS: OXYCODONE HCL/ACETAMINOPHEN 5/325MG TABLET PO PRN ×2 (03:51→21:05)
[2019-10-11] MEDS: BLOOD SUGAR DIAGNOSTIC STRIP TEST SCH ×4 (05:59→21:58)
[2019-10-11] MEDS: INSULIN LISPRO 100 UNITS/ML SUBCUT SCH ×4 (06:00→22:27)
[2019-10-11] MEDS: BUDESONIDE 0.5MG/2ML NEB HHN SCH (08:21)
[2019-10-11 08:27] VITALS: BP 139/62
[2019-10-11] MEDS: PREGABALIN 25MG CAPSULE PO SCH ×2 (08:43→21:57)
[2019-10-11] MEDS: HYDROCHLOROTHIAZIDE 25MG TABLET PO SCH (08:44)
[2019-10-11] MEDS: GUAIFENESIN 600MG ER TABLET PO SCH ×2 (08:44→21:06)
[2019-10-11] MEDS: DOCUSATE SODIUM 100MG CAPSULE PO SCH ×2 (08:44→16:21)
[2019-10-11] MEDS: FAMOTIDINE 20MG TABLET PO SCH ×2 (08:44→21:07)
[2019-10-11] MEDS: METFORMIN HCL 500MG TABLET PO SCH (08:44)
[2019-10-11] MEDS: TRAMADOL 50MG TABLET PO PRN (10:09)
[2019-10-11] MEDS ORDERED: LACTULOSE 20G/30ML UDC PO STA (11:22)
[2019-10-11] MEDS: LACTULOSE 20G/30ML UDC PO SCH ×4 (11:50→21:06)
[2019-10-11] MEDS ORDERED: BISACODYL 10MG SUPP PR SCH (12:00)
[2019-10-11] MEDS: POLYETHYLENE GLYCOL 3350 (17GM) 1 DOSE PACK PO SCH (21:06)
[2019-10-11] MEDS: LORATADINE 10MG TABLET PO SCH (21:06)
[2019-10-11] MEDS: ATORVASTATIN CALCIUM 40MG TABLET PO SCH (21:06)
[2019-10-11] MEDS: AMITRIPTYLINE 25MG TABLET PO SCH (21:57)
[2019-10-11] MEDS: ATENOLOL 50 MG TABLET PO SCH (21:59)
[2019-10-11 22:29] VITALS: BP 117/61
[2019-10-12] MEDS: IPRATROPIUM/ALBUTEROL 0.5-3(2.5)MG/3ML NEB HHN SCH ×4 (03:12→21:17)
[2019-10-12] MEDS: BLOOD SUGAR DIAGNOSTIC STRIP TEST SCH ×4 (05:39→21:27)
[2019-10-12] MEDS: INSULIN LISPRO 100 UNITS/ML SUBCUT SCH ×4 (05:39→21:00)
[2019-10-12 06:58] LABS: BASOPHILS % 0.5 % (0.0-2.0); EOSINOPHILS % 2.8 % (0.0-5.0); HEMATOCRIT. 36.1 % (36.0-48.0); HEMOGLOBIN. 11.9 g/dL (12.0-16.0); LYMPHOCYTES % 24.6 % (20.0-50.0); MEAN CORPUSCULAR HEMOGLOBIN 27.9 pg (28.0-32.0); MEAN CORPUSCULAR VOLUME 84.4 fL (81.0-99.0); MEAN PLATELET VOLUME 8.5 fl (7.4-10.4); MONOCYTES % 7.2 % (2.0-8.0); NEUTROPHILS % 64.9 % (40.0-76.0); PLATELET 365 x1000/uL (130-400); RED BLOOD CELL COUNT 4.27 mill/uL (4.2-5.4); RED CELL DISTRIBUTION WIDTH 13.6 % (11.6-14.6)
[2019-10-12] MEDS: TRAMADOL 50MG TABLET PO PRN ×2 (07:00→14:45)
[2019-10-12 07:07] LABS: CHLORIDE 97 mEq/L (98-107)
[2019-10-12] MEDS: BUDESONIDE 0.5MG/2ML NEB HHN SCH (08:10)
[2019-10-12 08:30] VITALS: BP 104/56
[2019-10-12] MEDS: HYDROCHLOROTHIAZIDE 25MG TABLET PO SCH (09:00)
[2019-10-12] MEDS: PREGABALIN 25MG CAPSULE PO SCH ×2 (10:06→21:26)
[2019-10-12] MEDS: FAMOTIDINE 20MG TABLET PO SCH ×2 (10:07→21:26)
[2019-10-12] MEDS: METFORMIN HCL 500MG TABLET PO SCH (10:07)
[2019-10-12] MEDS: GUAIFENESIN 600MG ER TABLET PO SCH ×2 (10:08→21:26)
[2019-10-12] MEDS ORDERED: POTASSIUM CHLORIDE 20MEQ TABLET SR PO NR (13:15)
[2019-10-12] MEDS: LIDOCAINE 5% PATCH TOP SCH (14:33)
[2019-10-12] MEDS: DOCUSATE SODIUM 100MG CAPSULE PO SCH ×2 (14:44→17:04)
[2019-10-12] MEDS: OXYCODONE HCL/ACETAMINOPHEN 5/325MG TABLET PO PRN ×2 (17:05→23:44)
[2019-10-12 20:00] VITALS: BP 120/49
[2019-10-12] MEDS: ATENOLOL 50 MG TABLET PO SCH (21:00)
[2019-10-12] MEDS: AMITRIPTYLINE 25MG TABLET PO SCH (21:26)
[2019-10-12] MEDS: LORATADINE 10MG TABLET PO SCH (21:26)
[2019-10-12] MEDS: POLYETHYLENE GLYCOL 3350 (17GM) 1 DOSE PACK PO SCH (21:27)
[2019-10-12] MEDS: ATORVASTATIN CALCIUM 40MG TABLET PO SCH (21:27)
[2019-10-13] MEDS: IPRATROPIUM/ALBUTEROL 0.5-3(2.5)MG/3ML NEB HHN SCH ×4 (02:39→22:42)
[2019-10-13] MEDS: BLOOD SUGAR DIAGNOSTIC STRIP TEST SCH ×4 (06:34→21:00)
[2019-10-13] MEDS: INSULIN LISPRO 100 UNITS/ML SUBCUT SCH ×4 (06:34→22:16)
[2019-10-13 07:15] LABS: CHLORIDE 101 mEq/L (98-107)
[2019-10-13 07:33] LABS: BASOPHILS % 0.6 % (0.0-2.0); EOSINOPHILS % 2.8 % (0.0-5.0); HEMATOCRIT. 35.4 % (36.0-48.0); HEMOGLOBIN. 11.7 g/dL (12.0-16.0); LYMPHOCYTES % 26.3 % (20.0-50.0); MEAN CORPUSCULAR HEMOGLOBIN 28.2 pg (28.0-32.0); MEAN CORPUSCULAR VOLUME 84.7 fL (81.0-99.0); MEAN PLATELET VOLUME 8.4 fl (7.4-10.4); MONOCYTES % 6.5 % (2.0-8.0); NEUTROPHILS % 63.8 % (40.0-76.0); PLATELET 352 x1000/uL (130-400); RED BLOOD CELL COUNT 4.17 mill/uL (4.2-5.4); RED CELL DISTRIBUTION WIDTH 13.8 % (11.6-14.6)
[2019-10-13 07:55] VITALS: BP 113/63
[2019-10-13] MEDS: METFORMIN HCL 500MG TABLET PO SCH (08:12)
[2019-10-13] MEDS: HYDROCHLOROTHIAZIDE 25MG TABLET PO SCH (08:12)
[2019-10-13] MEDS: PREGABALIN 25MG CAPSULE PO SCH ×2 (08:12→22:04)
[2019-10-13] MEDS: DOCUSATE SODIUM 100MG CAPSULE PO SCH ×2 (08:12→16:57)
[2019-10-13] MEDS: LIDOCAINE 5% PATCH TOP SCH (08:12)
[2019-10-13] MEDS: FAMOTIDINE 20MG TABLET PO SCH ×2 (08:12→21:00)
[2019-10-13] MEDS: GUAIFENESIN 600MG ER TABLET PO SCH ×2 (08:13→22:03)
[2019-10-13] MEDS: TRAMADOL 50MG TABLET PO PRN ×2 (08:13→16:54)
[2019-10-13] MEDS ORDERED: LIDOCAINE 5% PATCH TOP SCH (09:00)
[2019-10-13] MEDS ORDERED: NA PHOS,M-B/NA PHOS,DI-BA ENEMA 118ML PR NR (12:00)
[2019-10-13] MEDS ORDERED: MORPHINE SULFATE 2 MG/ML CPJ (NOT FOR IM USE) IV PRN (12:00)
[2019-10-13] MEDS: OXYCODONE HCL/ACETAMINOPHEN 5/325MG TABLET PO PRN ×2 (12:10→22:08)
[2019-10-13 20:00] VITALS: BP 119/47
[2019-10-13] MEDS: POLYETHYLENE GLYCOL 3350 (17GM) 1 DOSE PACK PO SCH (21:00)
[2019-10-13] MEDS: AMITRIPTYLINE 25MG TABLET PO SCH (22:03)
[2019-10-13] MEDS: ATENOLOL 50 MG TABLET PO SCH (22:03)
[2019-10-13] MEDS: LORATADINE 10MG TABLET PO SCH (22:04)
[2019-10-13] MEDS: ATORVASTATIN CALCIUM 40MG TABLET PO SCH (22:04)
[2019-10-14] MEDS: IPRATROPIUM/ALBUTEROL 0.5-3(2.5)MG/3ML NEB HHN SCH ×3 (02:44→21:24)
[2019-10-14] MEDS: INSULIN LISPRO 100 UNITS/ML SUBCUT SCH ×4 (06:02→20:37)
[2019-10-14] MEDS: BLOOD SUGAR DIAGNOSTIC STRIP TEST SCH ×4 (06:02→20:37)
[2019-10-14] MEDS: TRAMADOL 50MG TABLET PO PRN ×2 (06:02→14:32)
[2019-10-14 08:11] VITALS: BP 103/55
[2019-10-14] MEDS: GUAIFENESIN 600MG ER TABLET PO SCH ×2 (08:32→20:34)
[2019-10-14] MEDS: FAMOTIDINE 20MG TABLET PO SCH ×2 (08:33→20:37)
[2019-10-14] MEDS: PREGABALIN 25MG CAPSULE PO SCH ×2 (08:33→20:35)
[2019-10-14] MEDS: DOCUSATE SODIUM 100MG CAPSULE PO SCH ×2 (08:33→17:00)
[2019-10-14] MEDS: LIDOCAINE 5% PATCH TOP SCH (08:33)
[2019-10-14] MEDS: HYDROCHLOROTHIAZIDE 25MG TABLET PO SCH (08:33)
[2019-10-14] MEDS: METFORMIN HCL 500MG TABLET PO SCH (08:34)
[2019-10-14] MEDS: OXYCODONE HCL/ACETAMINOPHEN 5/325MG TABLET PO PRN ×2 (09:11→20:37)
[2019-10-14 20:00] VITALS: BP 123/61
[2019-10-14] MEDS: LORATADINE 10MG TABLET PO SCH (20:34)
[2019-10-14] MEDS: ATORVASTATIN CALCIUM 40MG TABLET PO SCH (20:35)
[2019-10-14] MEDS: ATENOLOL 50 MG TABLET PO SCH (20:35)
[2019-10-14] MEDS: POLYETHYLENE GLYCOL 3350 (17GM) 1 DOSE PACK PO SCH (20:35)
[2019-10-14] MEDS: AMITRIPTYLINE 25MG TABLET PO SCH (20:35)
[2019-10-15] MEDS: IPRATROPIUM/ALBUTEROL 0.5-3(2.5)MG/3ML NEB HHN SCH ×4 (02:34→21:49)
[2019-10-15] MEDS: BLOOD SUGAR DIAGNOSTIC STRIP TEST SCH ×4 (06:05→20:40)
[2019-10-15] MEDS: INSULIN LISPRO 100 UNITS/ML SUBCUT SCH ×4 (06:06→20:48)
[2019-10-15] MEDS: METFORMIN HCL 500MG TABLET PO SCH (08:53)
[2019-10-15] MEDS: GUAIFENESIN 600MG ER TABLET PO SCH ×2 (08:53→20:40)
[2019-10-15] MEDS: FAMOTIDINE 20MG TABLET PO SCH ×2 (08:53→20:40)
[2019-10-15] MEDS: DOCUSATE SODIUM 100MG CAPSULE PO SCH ×2 (08:53→16:44)
[2019-10-15] MEDS: PREGABALIN 25MG CAPSULE PO SCH ×2 (08:53→20:40)
[2019-10-15] MEDS: TRAMADOL 50MG TABLET PO PRN ×2 (08:53→18:44)
[2019-10-15] MEDS: HYDROCHLOROTHIAZIDE 25MG TABLET PO SCH (08:53)
[2019-10-15] MEDS: LIDOCAINE 5% PATCH TOP SCH (08:54)
[2019-10-15] MEDS: OXYCODONE HCL/ACETAMINOPHEN 5/325MG TABLET PO PRN (13:50)
[2019-10-15 20:00] VITALS: BP_SYST 129; BP_SYST 139; BP_DIAS 67
[2019-10-15] MEDS: ATENOLOL 50 MG TABLET PO SCH (20:39)
[2019-10-15] MEDS: LORATADINE 10MG TABLET PO SCH (20:39)
[2019-10-15] MEDS: AMITRIPTYLINE 25MG TABLET PO SCH (20:40)
[2019-10-15] MEDS: ATORVASTATIN CALCIUM 40MG TABLET PO SCH (20:40)
[2019-10-15] MEDS: POLYETHYLENE GLYCOL 3350 (17GM) 1 DOSE PACK PO SCH (20:40)
[2019-10-16] MEDS: IPRATROPIUM/ALBUTEROL 0.5-3(2.5)MG/3ML NEB HHN SCH ×2 (01:50→07:49)
[2019-10-16] MEDS: OXYCODONE HCL/ACETAMINOPHEN 5/325MG TABLET PO PRN (03:34)
[2019-10-16] MEDS: BLOOD SUGAR DIAGNOSTIC STRIP TEST SCH ×2 (07:19→11:15)
[2019-10-16] MEDS: INSULIN LISPRO 100 UNITS/ML SUBCUT SCH ×2 (07:20→12:42)
[2019-10-16 08:00] VITALS: BP 91/45
[2019-10-16] MEDS: HYDROCHLOROTHIAZIDE 25MG TABLET PO SCH (09:00)
[2019-10-16] MEDS: FAMOTIDINE 20MG TABLET PO SCH (09:04)
[2019-10-16] MEDS: GUAIFENESIN 600MG ER TABLET PO SCH (09:04)
[2019-10-16] MEDS: TRAMADOL 50MG TABLET PO PRN (09:04)
[2019-10-16] MEDS: LIDOCAINE 5% PATCH TOP SCH (09:04)
[2019-10-16] MEDS: METFORMIN HCL 500MG TABLET PO SCH (09:05)
[2019-10-16] MEDS: PREGABALIN 25MG CAPSULE PO SCH (09:05)
[2019-10-16] MEDS: DOCUSATE SODIUM 100MG CAPSULE PO SCH (09:05)
[2019-10-16 10:31] VITALS: BP 101/55
== END 2019-10-16 14:18 | DRG 551 ==
PROVIDERS: ADMIT Psychiatry & Neurology Neurology; ATTEND Internal Medicine
DX: M48.02 Spinal stenosis, cervical region (principal); G82.50 Quadriplegia, unspecified; M47.12 Other spondylosis with myelopathy, cervical region; I10 Essential (primary) hypertension; E78.5 Hyperlipidemia, unspecified; E11.9 Type 2 diabetes mellitus without complications; E66.9 Obesity, unspecified; M13.0 Polyarthritis, unspecified; J45.909 Unspecified asthma, uncomplicated; F17.210 Nicotine dependence, cigarettes, uncomplicated; Z96.653 Presence of artificial knee joint, bilateral; F41.9 Anxiety disorder, unspecified; K59.00 Constipation, unspecified; F32.9 Major depressive disorder, single episode, unspecified; R26.9 Unspecified abnormalities of gait and mobility; Z68.39 Body mass index [BMI] 39.0-39.9, adult; Z88.2 Allergy status to sulfonamides; Z88.6 Allergy status to analgesic agent
CPT/HCPCS: 36415; 71045; 72050; 73030; 74018; 80048; 80053; 81003; 82962; 83036; 83735; 84100; 85025; 92610; 93970; 94640; 97110; 97116; 97162; 97166; 97530; 97535; J1815; J2270; J2405; J7626; L0172; Q0162